=== PATIENT | male | born 1965 | race American Indian/Alaskan Native ===

== ENCOUNTER 2018-08-10 18:23 | Emergency (ER) | payer MEDICARE, MEDICAID ==
[2018-08-10 19:34] LABS: BASO # 0.1 K/uL (0.0-0.2); BASO % 1.6 % (0.0-2.0); EOS # 0.3 K/uL (0.0-0.7); EOS % 4.5 % (0.0-4.0); HEMOGLOBIN 12.2 g/dL (12.0-18.0); LYMPH % 17.5 % (20.0-40.0); MEAN CELL VOLUME 89.5 fL (80.0-94.0); MEAN CORPUSCULAR HEMOGLOBIN 30.1 pg (27.0-31.0); MEAN CORPUSCULAR HGB CONC 33.6 g/dL (33.0-37.0); MEAN PLATELET VOLUME 7.2 fL (7.2-11.7); MONO # 0.4 K/uL (0.0-0.8); NEUT # 4.1 K/uL (1.8-7.0); NEUT % 69.4 % (50.0-75.0); RBC 4.04 Mil/uL (4.40-5.90); RED CELL DISTRIBUTION WIDTH 15.6 % (11.5-14.5); WHITE BLOOD COUNT 5.9 K/uL (4.8-10.8)
[2018-08-10 19:52] LABS: ALB/GLOB RATIO 1.2 (1.0-2.1); ALBUMIN 4.1 g/dL (3.5-5.0); CALCIUM 9.9 mg/dl (8.6-10.4)
--- NOTE | 2018-08-10 19:53 | C.PDOC ---
History Of Present Illness 52 y/o male patient from [place] s/p dialysis c/o episode of chest pain as well as persistent HTN from not having his medication. Patient reports he brought his HTN medication but spilled it and was wondering if he can get a prescription for his HTN medications. Associated symptom includes LLQ abdominal pain. Patient denies headache, nausea and vomiting. Time Seen by Provider: 08/10/18 18:59 Chief Complaint (Nursing): Shortness Of Breath History Per: Patient History/Exam Limitations: no limitations Current Symptoms Are (Timing): Still Present Past Medical History Reviewed: Historical Data, Nursing Documentation, Vital Signs Vital Signs: Last Vital Signs Temp 98.3 F 08/10/18 18:24 Pulse 92 H 08/10/18 18:24 Resp 19 08/10/18 19:03 BP 195/112 H 08/10/18 18:24 Pulse Ox 95 08/10/18 19:03 - Medical History PMH: Arthritis, HTN, End Stage Renal Disease Family History: States: No Known Family Hx - Social History Hx Alcohol Use: No Hx Substance Use: No - Immunization History Hx Tetanus Toxoid Vaccination: No Hx Influenza Vaccination: Yes (07/2018) Review Of Systems Except As Marked, All Systems Reviewed And Found Negative. Constitutional: Positive for: Other (persistent HTN) Gastrointestinal: Positive for: Abdominal Pain (LLQ). Negative for: Nausea, Vomiting Neurological: Negative for: Headache Physical Exam - Physical Exam Appears: Non-toxic, No Acute Distress Skin: Normal Color, Warm, Dry Head: Normacephalic Eye(s): bilateral: Normal Inspection, EOMI Chest: Symmetrical, No Deformity Cardiovascular: Rhythm Regular Respiratory: Normal Breath Sounds Gastrointestinal/Abdominal: Soft, No Tenderness, No Distention Back: No CVA Tenderness Extremity: Normal ROM (x4) Neurological/Psych: Oriented x3, Normal Speech ED Course And Treatment - Laboratory Results Result Diagrams: 08/10/18 19:30 08/10/18 19:30 ECG: Interpreted By Me, Viewed By Me ECG Rhythm: Sinus Rhythm Interpretation Of ECG: no ST elevation or depression; flipped Ts in the lateral leads. Rate From EC O2 Sat by Pulse Oximetry: 95 (RA) Pulse Ox Interpretation: Normal Medical Decision Making Medical Decision Making: Impression: arrived for dialysis; HTN with chest pain Plans: -- EKG -- chem lab -- blood work -- CXR Patient feeling better, no CP, no SOB. Plans to return home to [facility] tomorrow. Will d.c now Disposition Counseled Patient/Family Regarding: Studies Performed, Diagnosis, Need For Followup - Disposition Disposition: HOME/ ROUTINE Disposition Time: 21:24 Condition: STABLE Forms: [facility] (Eritrean), General Discharge Instructions - POA Present On Arrival: None - Clinical Impression Clinical Impression: Hypertension - Scribe Statement The provider has reviewed the documentation as recorded by the Viridiana Bryan Do Provider Attestation: All medical record entries made by the Viridiana were at my direction and personally dictated by me. I have reviewed the chart and agree that the record a ccurately reflects my personal performance of the history, physical exam, medical decision making, and the department course for this patient. I have also personally directed, reviewed, and agree with the discharge instructions and disposition.
[2018-08-10 20:02] LABS: TROPONIN I 0.082 ng/mL (0.00-0.120)
[2018-08-10 21:30] VITALS: BP 169/105; PULSE 81; RESP 12; TEMP 97.8; O2SAT 97
--- NOTE | 2018-08-11 09:31 | RAD ---
Date of service: 08/10/2018 PROCEDURE: CHEST RADIOGRAPH, 1 VIEW HISTORY: Chest pain COMPARISON: None available. FINDINGS: LUNGS: Poor inspiration with low lung volumes, crowded bronchovascular markings and mild bibasilar atelectasis however on possibility of developing lower lobe infiltrates should be excluded with follow-up radiographs. Questionable small bilateral effusions.. PLEURA: As above. No pneumothorax. CARDIOVASCULAR: Cardiomegaly. OSSEOUS STRUCTURES: No significant abnormalities. VISUALIZED UPPER ABDOMEN: Normal. OTHER FINDINGS: None. IMPRESSION: Poor inspiration with low lung volumes, crowded bronchovascular markings and mild bibasilar atelectasis however on possibility of developing lower lobe infiltrates should be excluded with follow-up radiographs. Questionable small bilateral effusions..
--- NOTE | 2018-08-12 21:08 | CARD ---
APPROVED REPORT Date of service: 08/10/2018 EKG Measurement Heart [id number] <Conclusion> Normal sinus rhythm Possible Left atrial enlargement Nonspecific T wave abnormality Prolonged QT Abnormal ECG
== END 2018-08-10 21:33 | disposition home or self-care (01) ==
LOC: C.ER 18:23
DX: I10 Essential (primary) hypertension (principal)